=== PATIENT | male | born 1970 | race Caucasian/White ===

== ENCOUNTER 2017-02-17 08:41 | Emergency (ER) | payer OTHER ==
[~2017-02-17] VITALS: Ht 177.8 cm; Wt 117.9 kg
[2017-02-17] MEDS ORDERED: NS IV 1000 ML 1,000 ML IV ONE (08:51)
[2017-02-17] MEDS ORDERED: fentaNYL INJECTION 100 MCG/2 ML AMP IVP ONE ×2 (09:00→09:30)
[2017-02-17] MEDS ORDERED: ONDANSETRON 4 MG/2 ML (SDV) Z0FRAN IVP ONE (09:00)
[2017-02-17 09:02] LABS: BASOPHILS % (AUTO) 0 % (0-10); EOSINOPHILS # (AUTO) 0.5 10^3/uL (0.0-0.3); EOSINOPHILS % (AUTO) 5 % (0-10); LYMPHOCYTES % (AUTO) 30 % (12-44); MEAN CORPUSCULAR HEMOGLOBIN 31 PG (25-34); MEAN CORPUSCULAR HGB CONC 36 G/DL (32-36); MEAN CORPUSCULAR VOLUME 88 FL (80-99); MEAN PLATELET VOLUME 11.6 FL (7.4-10.4); MONOCYTES # (AUTO) 1.3 X 10^3 (0.0-1.0); MONOCYTES % (AUTO) 13 % (0-12); NEUTROPHILS # (AUTO) 5.3 X 10^3 (1.8-7.8); NEUTROPHILS % (AUTO) 52 % (42-75); PLATELET COUNT 230 10^3/uL (130-400); RED CELL DISTRIBUTION WIDTH 12.6 % (10.0-14.5); WHITE BLOOD COUNT 10.1 10^3/uL (4.3-11.0)
[2017-02-17 09:17] LABS: ALANINE AMINOTRANSFERASE 55 U/L (0-55); ANION GAP 10 MMOL/L (5-14); ASPARTATE AMINO TRANSFERASE 28 U/L (5-34); BLOOD UREA NITROGEN 15 MG/DL (7-18); BUN/CREATININE RATIO 15; CALCIUM 9.5 MG/DL (8.5-10.1); CARBON DIOXIDE 24 MMOL/L (21-32); CHLORIDE 105 MMOL/L (98-107); CREATININE SERUM 0.98 MG/DL (0.60-1.30); GFR ESTIMATED > 60; GLUCOSE 161 MG/DL (70-105); LIPASE 38 U/L (8-78); POTASSIUM 4.2 MMOL/L (3.6-5.0); SODIUM 139 MMOL/L (135-145); TOTAL PROTEIN 6.7 GM/DL (6.4-8.2)
[2017-02-17 09:44] LABS: BILIRUBIN,URINE NEGATIVE (NEGATIVE); KETONES,URINE 1+ (NEGATIVE); LEUKOCYTE ESTERASE ,URINE 1+ (NEGATIVE); NITRITE,URINE NEGATIVE (NEGATIVE); PH,URINE 6 (5-9); PROTEIN,URINE 3+ (NEGATIVE); UROBILINOGEN,URINE 1 MG/DL (NORMAL)
[2017-02-17 09:57] LABS: WBC,URINE RARE /HPF
[2017-02-17] MEDS ORDERED: KETOROLAC 30 MG/ML VIAL IVP ONE (10:15)
--- NOTE | 2017-02-17 10:18 | ED Abdominal Pain ---
General Chief Complaint: Abdominal/GI Problems Stated Complaint: WEAK,N/V, LOWER PAIN Nursing Triage Note: PT C/O SUPRAPUBIC ABD PAIN AND L TESTICULAR TENDERNESS SINCE APPROX 0800 THIS AM. HE ALSO C/O N/V AND DIAPHORESIS. Sepsis Screen: No Definite Risk Source of Information: Patient Exam Limitations: No Limitations History of Present Illness Time Seen By Provider: 08:44 Initial Comments This 46-year-old gentleman presents to the emergency room with fairly sudden onset of left lower quadrant and suprapubic pain starting this morning. He has associated nausea and vomiting. He denies any difficulty urinating or passing bowel movement this morning. He took naproxen at home which did not resolve his pain. He reports pain is 8/10. He is diaphoretic at this time. He denies any fever. Denies hematuria or dysuria. He does have a history of renal stones. Primary care provider is Kathe Arango at [facility]. Patient's family also reports he has been having worsening difficulty with upper abdominal pain over the past 1-2 months which she attributes to GERD. He has increased his antiacid therapy from Pepcid to Nexium. He does not complain of upper abdominal pain today. Allergies and Home Medications Allergies Coded Allergies: No Known Drug Allergies (Unverified , 02/17/17) Home Medications Hydrocodone/Acetaminophen 1 Each Tablet, 1-2 EACH PO Q6H PRN for PAIN-MODERATE TO SEVERE, #20 Prescribed by: SABRINA DORAN on 02/17/17 1101 Ondansetron 4 Mg Tab.rapdis, 4 MG PO Q4H PRN for NAUSEA/VOMITING-1ST LINE, #10 Prescribed by: SABRINA DORAN on 02/17/17 1101 Review of Systems Constitutional: see HPI, diaphoresis EENTM: No Symptoms Reported Respiratory: No Symptoms Reported Cardiovascular: No Symptoms Reported Gastrointestinal: See HPI Genitourinary: See HPI Musculoskeletal: no symptoms reported Skin: no symptoms reported Psychiatric/Neurological: No Symptoms Reported Endocrine: No Symptoms Reported Hematologic/Lymphatic: No Symptoms Reported Past Xhhapdw-Ickolv-Mcmivi Hx Patient Social History Alcohol Use: Denies Use Recreational Drug Use: No Smoking Status: Current Everyday Smoker 2nd Hand Smoke Exposure: No Recent Foreign Travel: No Contact w/Someone Who Travel: No Recent Infectious Disease Expo: No Recent Hopitalizations: No Seasonal Allergies Seasonal Allergies: No Surgeries HX Surgeries: Yes Surgeries: Abdominal (left inguinal hernia) Respiratory Hx Respiratory Disorders: No Cardiovascular Hx Cardiac Disorders: Yes Cardiac Disorders: Hypertension Neurological Hx Neurological Disorders: No Reproductive System Hx Reproductive Disorders: No Genitourinary Hx Genitourinary Disorders: Yes Genitourinary Disorders: Kidney Stones Gastrointestinal Hx Gastrointestinal Disorders: Yes Gastrointestinal Disorders: Gastroesophageal Reflux HEENT HX ENT Disorders: No Cancer Hx Cancer: No Psychosocial Hx Psychiatric Problems: No Integumentary HX Skin/Integumentary Disorder: No Physical Exam Vital Signs VS - Last 72 Hours, by Label 02/17/17 02/17/17 08:41 11:30 Temp 97.6 97.6 Pulse 59 59 Resp 14 14 B/P (MAP) 128/96 Pulse Ox 95 95 O2 Delivery Room Air Capillary Refill : Less Than 3 Seconds General Appearance: WD/WN, no apparent distress HEENT: PERRL/EOMI, normal ENT inspection, pharynx normal Neck: normal inspection Respiratory: lungs clear, normal breath sounds, no respiratory distress, no accessory muscle use Cardiovascular: regular rate, rhythm, no edema, no murmur Gastrointestinal: normal bowel sounds, soft, tenderness (suprapubic region, left lower quadrant) Genital/Rectal: tenderness (mild in the left scrotum), other (no evidence of hernia) Extremities: non-tender, normal inspection, no pedal edema Neurologic/Psychiatric: metrology manager II-XII nml as tested, no motor/sensory deficits, alert, normal mood/affect, oriented x 3 Skin: normal color, warm/dry Progress/Results/Core Measures Results/Orders Lab Results Laboratory Tests Test 02/17/17 08:45 02/17/17 09:35 Range/Units White Blood Count 10.1 4.3-11.0 10^3/uL Red Blood Count 5.70 4.35-5.85 10^6/uL Hemoglobin 17.8 H 13.3-17.7 G/DL Hematocrit 50 40-54 % Mean Corpuscular Volume 88 80-99 FL Mean Corpuscular Hemoglobin 31 25-34 PG Mean Corpuscular Hemoglobin Concent 36 32-36 G/DL Red Cell Distribution Width 12.6 10.0-14.5 % Platelet Count 230 130-400 10^3/uL Mean Platelet Volume 11.6 H 7.4-10.4 FL Neutrophils (%) (Auto) 52 42-75 % Lymphocytes (%) (Auto) 30 12-44 % Monocytes (%) (Auto) 13 H 0-12 % Eosinophils (%) (Auto) 5 0-10 % Basophils (%) (Auto) 0 0-10 % Neutrophils # (Auto) 5.3 1.8-7.8 X 10^3 Lymphocytes # (Auto) 3.0 1.0-4.0 X 10^3 Monocytes # (Auto) 1.3 H 0.0-1.0 X 10^3 Eosinophils # (Auto) 0.5 H 0.0-0.3 10^3/uL Basophils # (Auto) 0.0 0.0-0.1 10^3/uL Sodium Level 139 135-145 MMOL/L Potassium Level 4.2 3.6-5.0 MMOL/L Chloride Level 105 98-107 MMOL/L Carbon Dioxide Level 24 21-32 MMOL/L Anion Gap 10 5-14 MMOL/L Blood Urea Nitrogen 15 7-18 MG/DL Creatinine 0.98 0.60-1.30 MG/DL Estimat Glomerular Filtration Rate > 60 BUN/Creatinine Ratio 15 Glucose Level 161 H 70-105 MG/DL Calcium Level 9.5 8.5-10.1 MG/DL Total Bilirubin 1.0 0.1-1.0 MG/DL Aspartate Amino Transf (AST/SGOT) 28 5-34 U/L Alanine Aminotransferase (ALT/SGPT) 55 0-55 U/L Alkaline Phosphatase 80 40-136 U/L Total Protein 6.7 6.4-8.2 GM/DL Albumin 4.0 3.2-4.5 GM/DL Lipase 38 8-78 U/L Urine Color DANIEL H Urine Clarity SLIGHTLY CLOUDY Urine pH 6 5-9 Urine Specific [place] 1.020 1.016-1.022 Urine Protein 3+ H NEGATIVE Urine Glucose (UA) NEGATIVE NEGATIVE Urine Ketones 1+ H NEGATIVE Urine Nitrite NEGATIVE NEGATIVE Urine Bilirubin NEGATIVE NEGATIVE Urine Urobilinogen 1 NORMAL MG/DL Urine Leukocyte Esterase 1+ H NEGATIVE Urine RBC (Auto) 5+ H NEGATIVE Urine RBC TNTC H /HPF Urine WBC RARE /HPF Urine Squamous Epithelial Cells NONE /HPF Urine Crystals NONE /LPF Urine Bacteria NEGATIVE /HPF Urine Casts NONE /LPF Urine Mucus NEGATIVE /LPF Urine Culture Indicated NO My Orders Orders - SABRINA HILTON MD Cbc With Automated Diff (02/17/17 08:51) Comprehensive Metabolic Panel (02/17/17 08:51) Lipase (02/17/17 08:51) Ua Culture If Indicated (02/17/17 08:51) Saline Lock/Iv-Start (02/17/17 08:51) Ns Iv 1000 Ml (Sodium Chloride 0.9%) (02/17/17 08:51) Ondansetron Injection (Zofran Injectio (02/17/17 09:00) Fentanyl Injection (Sublimaze Injection (02/17/17 09:00) Fentanyl Injection (Sublimaze Injection (02/17/17 09:30) Ct Abd/Pelvis Wo(Kidney Stone) (02/17/17 10:01) Ketorolac Injection (Toradol Injection) (02/17/17 10:15) Glycopyrrolate Injection (Robinul Inject (02/17/17 11:00) Iv Push Medical Apparatus Model Maker Ed (02/17/17 ) Medications Given in ED Vital Signs/I&O Vital Sign - Last 12Hours 02/17/17 02/17/17 08:41 11:30 Temp 97.6 97.6 Pulse 59 59 Resp 14 14 B/P (MAP) 128/96 Pulse Ox 95 95 O2 Delivery Room Air Blood Pressure Mean: 107 Progress Note #1: Time: 10:12 Progress Note Patient was able to bowl to finally provide a urine specimen. There was a large amount of hematuria present. CT for stone search was ordered. Toradol given for additional pain relief. Progress Note #2: Progress Note Ureteral stone was found on CT scan. The stone was proximal and Robinul was given an attempt to help him pass the stone. Patient reports that her Reglan helped him in the past and he still has some at home. He plans to use his home supply. We also discussed his need to follow-up regarding his upper abdominal pain. Gallstones incidentally found on the CT scan could be a contributing factor. He was advised to use his Nexium daily. Diagnostic Imaging Diagonstic Imaging: CT Plain Films/CT/US/NM/MRI: abdomen, pelvis Comments CT of the abdomen and pelvis for stone search was viewed by me and report reviewed. See report below: NAME: TRISTAN MARMOLEJO REC#: [id number] PT STATUS: DEP ER : 1970 PHYSICIAN: SABRINA HLITON MD ADMIT DATE: 02/17/17/ER Signed Date of Exam: 02/17/17 CT ABD/PELVIS WO(KIDNEY STONE) PROCEDURE: CT urinary tract, rule out kidney stone. TECHNIQUE: Multiple contiguous axial images were obtained through the abdomen and pelvis without the use of intravenous contrast. INDICATION: Mid to lower abdominal pain COMPARISON: None FINDINGS: Included views of the lung bases are clear. CT abdomen: A 3 mm calculus is identified within the proximal to mid left ureter (image 3, series 4). As a result, there is mild proximal hydroureteronephrosis. No other renal or ureteral calculus seen on either side. There is no hydroureteronephrosis or other evidence of obstruction on the right. No renal mass type lesions are identified on either side. Liver is diffusely hyperdense consistent with underlying hepatic steatosis. There is probable sparing around the gallbladder fossa. Note is also made of multiple gallstones. The adrenal glands, spleen, and pancreas have a normal CT appearance. Small bowel loops are nondistended. There is colonic diverticulosis, but no CT evidence of acute diverticulitis. Normal appendix is identified. There is no loculated fluid collection, free fluid, nor free air within the abdomen. No abnormal mesenteric or retroperitoneal adenopathy is seen. Bony structures show no acute abnormalities. CT pelvis: Urinary bladder is unopacified. No calculi are seen within the urinary bladder. There is no loculated fluid collection, free fluid, nor free air. Bilateral fat-containing inguinal hernias are noted. No abnormal lymph nodes are seen. Bony structures show no acute abnormalities. IMPRESSION: 1. A 3 mm calculus in the mid to proximal left ureter resulting in mild proximal hydroureteronephrosis. 2. Cholelithiasis. 3. Hepatic steatosis. 4. Colonic diverticulosis, but no CT evidence of acute diverticulitis. Dictated by: Dictated on workstation # [id number] Dict: 02/17/17 1039 Trans: 02/17/179 Interpreted by: DANE TRUJILLO Electronically signed by: DANE TRUJILLO 07/06/17 1719 Departure Impression Impression: Primary Impression: Left ureteral stone Additional Impressions: Hydronephrosis Qualified Codes: N13.2 - Hydronephrosis with renal and ureteral calculous obstruction Nausea and vomiting Qualified Codes: R11.2 - Nausea with vomiting, unspecified Cholelithiasis Qualified Codes: K80.20 - Calculus of gallbladder without cholecystitis without obstruction Disposition: 01 HOME, SELF-CARE Condition: Improved Departure-Patient Inst. Decision time for Depature: 10:58 Referrals: [facility] (PCP/Family) Primary Care Physician Patient Instructions: Gallstones, Kidney Stones in Adults Add. Discharge Instructions: Drink plenty of clear liquids. Use your pain medications as prescribed. Strain your urine and bring any stones collected to your follow-up appointment. Follow-up with your primary care provider and/or urologist as soon as possible. Please be advised to have gallstones which may be causing your upper abdominal pain. Referral to a surgeon is recommended for further evaluation. Return to the ER if symptoms worsen. All discharge instructions reviewed with patient and/or family. Voiced understanding. Scripts Hydrocodone/Acetaminophen (Hydrocodon -Acetaminophen 5-325) 1 Each Tablet 1-2 EACH PO Q6H Y for PAIN-MODERATE TO SEVERE, #20 TAB Prov: SABRINA HILTON MD 02/17/17 Ondansetron (Zofran Odt) 4 Mg Tab.rapdis 4 MG PO Q4H Y for NAUSEA/VOMITING-1ST LINE, #10 TAB Prov: SABRINA HILTON MD 02/17/17 SABRINA HILTON MD Feb 17, 2017 10:18
--- NOTE | 2017-02-17 10:51 | Diagnostic Imaging Report ---
PROCEDURE: CT urinary tract, rule out kidney stone. TECHNIQUE: Multiple contiguous axial images were obtained through the abdomen and pelvis without the use of intravenous contrast. INDICATION: Mid to lower abdominal pain COMPARISON: None FINDINGS: Included views of the lung bases are clear. CT abdomen: A 3 mm calculus is identified within the proximal to mid left ureter (image 3, series 4). As a result, there is mild proximal hydroureteronephrosis. No other renal or ureteral calculus seen on either side. There is no hydroureteronephrosis or other evidence of obstruction on the right. No renal mass type lesions are identified on either side. Liver is diffusely hyperdense consistent with underlying hepatic steatosis. There is probable sparing around the gallbladder fossa. Note is also made of multiple gallstones. The adrenal glands, spleen, and pancreas have a normal CT appearance. Small bowel loops are nondistended. There is colonic diverticulosis, but no CT evidence of acute diverticulitis. Normal appendix is identified. There is no loculated fluid collection, free fluid, nor free air within the abdomen. No abnormal mesenteric or retroperitoneal adenopathy is seen. Bony structures show no acute abnormalities. CT pelvis: Urinary bladder is unopacified. No calculi are seen within the urinary bladder. There is no loculated fluid collection, free fluid, nor free air. Bilateral fat-containing inguinal hernias are noted. No abnormal lymph nodes are seen. Bony structures show no acute abnormalities. IMPRESSION: 1. A 3 mm calculus in the mid to proximal left ureter resulting in mild proximal hydroureteronephrosis. 2. Cholelithiasis. 3. Hepatic steatosis. 4. Colonic diverticulosis, but no CT evidence of acute diverticulitis. Dictated by: Dictated on workstation # [id number]
[2017-02-17] MEDS ORDERED: GLYCOPYRROLATE 0.2 MG/ML (ROBINUL) 2 ML VIAL IV ONE (11:00)
[2017-02-17] MEDS ORDERED: HYDR-3812 PO (11:01)
[2017-02-17] MEDS ORDERED: ONDA4TAB8 PO (11:01)
[2017-02-17 11:30] VITALS: BP 128/96
== END 2017-02-17 11:30 | disposition home or self-care (01) ==
LOC: ER 08:44
DX: N13.2 Hydronephrosis with renal and ureteral calculous obstruction (principal); K80.20 Calculus of gallbladder without cholecystitis without obstruction; K21.9 Gastro-esophageal reflux disease without esophagitis; I10 Essential (primary) hypertension; F17.200 Nicotine dependence, unspecified, uncomplicated; Z87.442 Personal history of urinary calculi; Z87.19 Personal history of other diseases of the digestive system
CPT/HCPCS: 36415; 74176; 80053; 81000; 83690; 85025; 96361; 96374; 96375

== ENCOUNTER → 2017-03-01 | Outpatient (CLI) | payer OTHER ==
[~2017-03-01] MED LIST: HYDR-3812 PO; ONDA4TAB8 PO
--- NOTE | 2017-03-01 14:08 | Diagnostic Imaging Report ---
EXAMINATION: Supine view of the abdomen. INDICATION: Left ureteric stone. FINDINGS: The 3 mm stone seen in the proximal left ureter on the CT of 02/17/2017 is not visible on this exam. The 6 mm calcification in the left side of the pelvis is confirmed to be a phlebolith based on the CT. IMPRESSION: There is a 6 mm phlebolith in the left side of the pelvis. No definitive stone is identified. Dictated by: Dictated on workstation # [id number]
== END ==
LOC: RAD 09:53
PROVIDERS: ATTEND Urology
DX: I87.8 Other specified disorders of veins (principal)
CPT/HCPCS: 74000

== ENCOUNTER 2017-07-28 15:15 | Outpatient (CLI) | payer OTHER ==
[~2017-07-28] VITALS: Ht 175.3 cm; Wt 113.4 kg
[~2017-07-28 15:15] MED LIST changes: +HYDR25TA4 PO; +MULT-35 PO; +NF-ESOM40C PO; +OMEG1CAP24 PO
== END 2017-07-28 15:34 ==
LOC: PREOP 15:15
PROVIDERS: ATTEND Surgery
DX: Z01.818 Encounter for other preprocedural examination (principal); K80.20 Calculus of gallbladder without cholecystitis without obstruction

== ENCOUNTER 2017-08-04 09:00 | Day surgery (SDC) | payer OTHER ==
[~2017-08-04] VITALS: Ht 175.3 cm; Wt 113.4 kg
--- NOTE | 2017-08-04 09:24 | Progress Note-Pre Operative ---
Pre-Operative Progress Note H&P Reviewed The H&P was reviewed, patient examined and no changes noted. Date Seen by Provider: Aug 04, 2017 Time Seen by Provider: 09:20 Date H&P Reviewed: Aug 04, 2017 Time H&P Reviewed: :20 Pre-Operative Diagnosis: chronic calculous cholecystitis. VALENTIN MCLEAN MD Aug 04, 2017 9:24 am
[2017-08-04] MEDS ORDERED: LOSA50TA36 PO (09:26)
[2017-08-04] MEDS ORDERED: KRIL1CAP22 PO (09:26)
[2017-08-04] MEDS ORDERED: LACTATED RINGERS 1,000 ML IV PRN ×2 (09:27→09:43)
[2017-08-04 09:30] VITALS: BP 134/87
[2017-08-04] MEDS ORDERED: ceFAZolin INJECTION 1,000 MG in NS (IVPB) 50 ML IV ONE (09:30)
[2017-08-04] MEDS ORDERED: ACETAMINOPHEN 325 MG TABLET/CAPLET (TYLENOL) PO PRN (09:30)
[2017-08-04] MEDS ORDERED: HYDROcodone/APAP 5 MG/325 MG (LORTAB) TAB PO ONE (09:30)
[2017-08-04] MEDS ORDERED: morphine INJ 10 MG/ML 1ML (SYR OR VIAL) IVP PRN (09:30)
[2017-08-04] MEDS ORDERED: ceFAZolin 1 GM/NS 50 ML IVPB IV ONE ×2 (09:30)
[2017-08-04] MEDS ORDERED: ONDANSETRON 4 MG/2 ML (SDV) Z0FRAN IVP PRN ×2 (09:30→13:15)
[2017-08-04] MEDS ORDERED: BUP/EPI 0.5% 1:200,000 (MARCAINE) 10ML VIAL IJ ONE (10:10)
[2017-08-04 10:15] LABS: BASOPHILS % (AUTO) 0 % (0-10); EOSINOPHILS # (AUTO) 0.5 10^3/uL (0.0-0.3); EOSINOPHILS % (AUTO) 5 % (0-10); LYMPHOCYTES # (AUTO) 2.1 X 10^3 (1.0-4.0); LYMPHOCYTES % (AUTO) 23 % (12-44); MEAN CORPUSCULAR HEMOGLOBIN 31 PG (25-34); MEAN CORPUSCULAR HGB CONC 35 G/DL (32-36); MEAN CORPUSCULAR VOLUME 89 FL (80-99); MEAN PLATELET VOLUME 12.3 FL (7.4-10.4); MONOCYTES # (AUTO) 1.3 X 10^3 (0.0-1.0); MONOCYTES % (AUTO) 14 % (0-12); NEUTROPHILS # (AUTO) 5.3 X 10^3 (1.8-7.8); NEUTROPHILS % (AUTO) 57 % (42-75); PLATELET COUNT 178 10^3/uL (130-400); RED BLOOD COUNT 5.61 10^6/uL (4.35-5.85); RED CELL DISTRIBUTION WIDTH 12.7 % (10.0-14.5); WHITE BLOOD COUNT 9.2 10^3/uL (4.3-11.0)
[2017-08-04] MEDS ORDERED: NEOSTIGMINE (BLOXIVERZ ) 1 MG/1ML 10 ML VIAL ONE (10:34)
[2017-08-04] MEDS ORDERED: GLYCOPYRROLATE 0.2 MG/ML (ROBINUL) 2 ML VIAL ONE (10:34)
[2017-08-04] MEDS ORDERED: SEVOFLURANE (ULTANE) 15 ML INHAL SOLN ONE (10:34)
[2017-08-04] MEDS ORDERED: LIDOCAINE PF 2% 5 ML (XYLOCAINE) VIAL ONE (10:34)
[2017-08-04] MEDS ORDERED: ONDANSETRON 4 MG/2 ML (SDV) Z0FRAN ONE (10:34)
[2017-08-04] MEDS ORDERED: DEXAMETHASONE 10 MG/ML (DECADRON) 1 ML VIAL ONE (10:34)
[2017-08-04] MEDS ORDERED: proPOfol 200 MG/20 ML (DIPRIVAN) VIAL IV ONE (10:34)
[2017-08-04] MEDS ORDERED: ROCURONIUM 50 MG/5 ML (ZEMURON) VIAL IV ONE (10:34)
[2017-08-04] MEDS ORDERED: fentaNYL INJECTION 250 MCG/5 ML AMP ONE (10:35)
[2017-08-04] MEDS ORDERED: MIDAZOLAM 2 MG/2 ML (VERSED) VIAL ONE (10:35)
--- OUTSIDE RECORDS SUMMARY | 2017-08-04 10:55 | XMS REPORT ---
Author Author CONSUELO TORRES Organization [facility] Address [address] [place] [address] Care Team Providers Care Agent Contract Clerk Name Role Phone CONSUELO TORRES Unavailable PROBLEMS Type Condition ICD9-CM Code [id number] Code Onset Dates Condition Status SNOMED Code Problem Kidney stones N20.0 Active 31425186 Problem Chronic sinusitis, unspecified location J32.9 Active 24509220 Problem Essential hypertension I10 Active 22844070 Problem Gastroesophageal reflux disease with esophagitis K21.0 Active 461755821 ALLERGIES No Known Allergies SOCIAL HISTORY No smoking Hx information available PLAN OF CARE VITAL SIGNS MEDICATIONS No Known Medications RESULTS Name Result Date Reference Range CBC 2016-08-20 WBC 8.6 3.4-10.8 RBC 5.51 4.14-5.80 Hemoglobin 17.5 12.6-17.7 Hematocrit 50.1 37.5-51.0 MCV 91 79-97 MCH 31.8 26.6-33.0 MCHC 34.9 31.5-35.7 RDW 13.3 12.3-15.4 Platelets 208 150-379 Neutrophils 48 Lymphs 43 Monocytes 4 Eos 4 Basos 1 Immature Cells Neutrophils (Absolute) 4.1 1.4-7.0 Lymphs (Absolute) 3.7 0.7-3.1 Monocytes(Absolute) 0.3 0.1-0.9 Eos (Absolute) 0.3 0.0-0.4 Baso (Absolute) 0.1 0.0-0.2 Immature Granulocytes Immature Grans (Abs) Hematology Comments: Note: LIPID PANEL 2016-08-20 Cholesterol, Total 166 100-199 Triglycerides 142 0-149 HDL Cholesterol 33 >39 VLDL Cholesterol Bry 28 5-40 LDL Cholesterol Calc 105 0-99 CMP 2016-08-20 Glucose, Serum 129 65-99 BUN 16 6-24 Creatinine, Serum 0.91 0.76-1.27 eGFR If NonAfricn Am 101 >59 eGFR If Africn Am 116 >59 BUN/Creatinine Ratio 18 9-20 Sodium, Serum 143 134-144 Potassium, Serum 4.5 3.5-5.2 Chloride, Serum 102 96-106 Carbon Dioxide, Total 28 18-29 Calcium, Serum 9.4 8.7-10.2 Protein, Total, Serum 6.4 6.0-8.5 Albumin, Serum 4.1 3.5-5.5 Globulin, Total 2.3 1.5-4.5 A/G Ratio 1.8 1.1-2.5 Bilirubin, Total 0.6 0.0-1.2 Alkaline Phosphatase, S 78 39-117 AST (SGOT) 26 0-40 ALT (SGPT) 43 0-44 PROCEDURES Procedure Date Ordered Related Diagnosis Body Site COMPLETE CBC W/AUTO DIFF WBC Aug 20, 2016 LIPID PANEL Aug 20, 2016 VENIPUNCT, ROUTINE* Aug 20, 2016 COMPREHEN METABOLIC PANEL Aug 20, 2016 IMMUNIZATIONS No Known Immunizations
--- OUTSIDE RECORDS SUMMARY | 2017-08-04 10:55 | XMS REPORT ---
Author Author CONSUELO TORRES Organization [facility] Address [address] [place] [address] Care Team Providers Care Sales Agent Protective Service Name Role Phone CONSUELO TORRES Unavailable PROBLEMS Type Condition ICD9-CM Code [id number] Code Onset Dates Condition Status SNOMED Code Problem Kidney stones N20.0 Active 36810827 Problem Chronic sinusitis, unspecified location J32.9 Active 73301403 Problem Essential hypertension I10 Active 61030918 Problem Gastroesophageal reflux disease with esophagitis K21.0 Active 274255989 ALLERGIES No Information SOCIAL HISTORY Never Assessed PLAN OF CARE VITAL SIGNS MEDICATIONS No Known Medications RESULTS No Results PROCEDURES No Known procedures IMMUNIZATIONS No Known Immunizations MEDICAL (GENERAL) HISTORY Type Description Date Medical History hypertension Surgical History inguinal hernia repair 1987 [address]ization [address] [facility] Kidney Stones 02/2017
--- OUTSIDE RECORDS SUMMARY | 2017-08-04 10:55 | XMS REPORT ---
Author Author CONSUELO TORRES Organization [facility] Address [address] [place] [address] Care Team Providers Care Moderate Needs Teacher Name Role Phone CONSUELO TORRES Unavailable PROBLEMS Type Condition ICD9-CM Code FUP03-QR Code Onset Dates Condition Status SNOMED Code Problem Kidney stones N20.0 Active 90513352 Problem Essential hypertension I10 Active 46136686 Problem Chronic sinusitis, unspecified location J32.9 Active 40727382 Problem Gastroesophageal reflux disease with esophagitis K21.0 Active 617412440 ALLERGIES Substance Reaction Event Type Date Status N.K.D.A. Unknown Non Drug Allergy Jul, Unknown SOCIAL HISTORY No smoking Hx information available PLAN OF CARE Activity Details Follow Up 2 Weeks Reason:blood work VITAL SIGNS Height 68 in 2016-08-06 Weight 246.0 lbs 2016-08-06 Temperature 97.7 degrees Fahrenheit 2016-08-06 Heart Rate 78 bpm 2016-08-06 Respiratory Rate 20 2016-08-06 BMI 37.40 kg/m2 2016-08-06 Blood pressure systolic 118 mmHg 2016-08-06 Blood pressure diastolic 84 mmHg 2016-08-06 MEDICATIONS Medication Instructions Dosage Frequency Start Date End Date Duration Status Ranitidine HCl 150 MG Orally Once a day 1 capsule at bedtime 24h Active Benazepril-Hydrochlorothiazide 20-25 MG Orally Once a day 1 tablet 24h Active [place]-3 Krill Oil 500 MG Active Tetracycline HCl 500 MG Orally Twice a day 1 capsule 12h Jul, Aug, 10 day(s) Active Sudafed 30 MG Orally every 6 hrs 1 tablet as needed 6h Active Guaifenesin 200 MG Orally every 4 hrs 1 tablet as needed 4h Active One Daily Adults 50+ - Active RESULTS No Results PROCEDURES Procedure Date Ordered Related Diagnosis Body Site Office Visit, Est Pt., Level 3 Aug 06, 2016 IMMUNIZATIONS No Known Immunizations
--- OUTSIDE RECORDS SUMMARY | 2017-08-04 10:55 | XMS REPORT ---
Author Author CONSUELO TORRES Organization [facility] Address [address] [place] [address] Care Team Providers Care Molder Inflated Ball Name Role Phone CONSUELO TRORES Unavailable PROBLEMS Type Condition ICD9-CM Code PLN90-UC Code Onset Dates Condition Status SNOMED Code Problem Kidney stones N20.0 Active 89496023 Problem Chronic sinusitis, unspecified location J32.9 Active 75404482 Problem Essential hypertension I10 Active 16781139 Problem Gastroesophageal reflux disease with esophagitis K21.0 Active 183936355 ALLERGIES No Information SOCIAL HISTORY Never Assessed PLAN OF CARE VITAL SIGNS MEDICATIONS Medication Instructions Dosage Frequency Start Date End Date Duration Status Lisinopril 20 mg Orally Once a day 1 tablet 24h Oct, 30 day(s) Active Hydrochlorothiazide 25 MG Orally Three times a Week 1 tablet in the morning Oct, 30 day(s) Active RESULTS No Results PROCEDURES No Known procedures IMMUNIZATIONS No Known Immunizations MEDICAL (GENERAL) HISTORY Type Description Date Medical History hypertension Surgical History inguinal hernia repair 1987 Hospitalization History [facility] Kid[facility] Stones 02/2017
--- OUTSIDE RECORDS SUMMARY | 2017-08-04 10:55 | XMS REPORT ---
Author Author CONSUELO TORRES Organization [facility] Address [address] [place] [address] Care Team Providers Care Search Strategist Name Role Phone TORRES CONSUELO Unavailable PROBLEMS Type Condition ICD9-CM Code [id number] Code Onset Dates Condition Status SNOMED Code Problem Kidney stones N20.0 Active 10880457 Problem Essential hypertension I10 Active 83492083 Problem Chronic sinusitis, unspecified location J32.9 Active 35076377 Problem Gastroesophageal reflux disease with esophagitis K21.0 Active 741963056 ALLERGIES Substance Reaction Event Type Date Status N.K.D.A. Unknown Non Drug Allergy Jul, Unknown SOCIAL HISTORY No smoking Hx information available PLAN OF CARE VITAL SIGNS MEDICATIONS Medication Instructions Dosage Frequency Start Date End Date Duration Status [place]-3 Krill Oil 500 MG Active Guaifenesin 200 MG Orally every 4 hrs 1 tablet as needed 4h Active Ranitidine HCl 150 MG Orally Once a day 1 capsule at bedtime 24h Active Benazepril-Hydrochlorothiazide 20-25 MG Orally Once a day 1 tablet 24h Active One Daily Adults 50+ - Active Sudafed 30 MG Orally every 6 hrs 1 tablet as needed 6h Active RESULTS No Results PROCEDURES No Known procedures IMMUNIZATIONS No Known Immunizations
--- OUTSIDE RECORDS SUMMARY | 2017-08-04 10:56 | XMS REPORT ---
Author Author CONSUELO TORRES Organization [facility] Address [address] [place] [address] Care Team Providers Care Turret Lathe Machinist Name Role Phone CONSUELO TORRES Unavailable PROBLEMS Type Condition ICD9-CM Code ALA02-TW Code Onset Dates Condition Status SNOMED Code Problem Kidney stones N20.0 Active 26860361 Problem Chronic sinusitis, unspecified location J32.9 Active 62225313 Problem Essential hypertension I10 Active 18730175 Problem Gastroesophageal reflux disease with esophagitis K21.0 Active 125507554 ALLERGIES No Known Allergies SOCIAL HISTORY No smoking Hx information available PLAN OF CARE VITAL SIGNS MEDICATIONS No Known Medications RESULTS Name Result Date Reference Range A1C (IN HOUSE) 2016-08-27 A1C IN HOUSE 5.9 4.3 - 5.6 % Previous A1c n/a Lot [id number] Exp date PROCEDURES Procedure Date Ordered Related Diagnosis Body Site GLYCATED HEMOGLOBIN TEST Aug 27, 2016 IMMUNIZATIONS No Known Immunizations
[2017-08-04] MEDS ORDERED: PHENYLEPHRINE 100 MCG/ML 10 ML (ANESTHESIA) SYR ONE (11:45)
[2017-08-04] MEDS ORDERED: fentaNYL INJECTION 100 MCG/2 ML AMP ONE (12:44)
--- NOTE | 2017-08-04 12:53 | Progress Note-Post Operative ---
Post-Operative Progess Note Surgeon (s)/Physical Science Professor (s) Surgeon VALENTIN MCLEAN MD Physical Science Professor: byron fernandez APRN Pre-Operative Diagnosis chronic calculous cholecystitis. Post-Operative Diagnosis same Procedure & Operative Findings Date of Procedure 08/04/17 Procedure Performed/Findings laparoscopic cholecystectomy. Anesthesia Type GET Estimated Blood Loss Estimated blood loss (mL): minimal Specimens/Packing Specimens Removed gallbladder VALENTIN MCLEAN MD Aug 04, 2017 12:53 pm
[2017-08-04] MEDS ORDERED: HYDR-3816 PO (12:58)
--- NOTE | 2017-08-04 13:00 | Discharge Inst-Surgical ---
D/C Lap Instructions-VINAY New, Converted, or Re-Newed RX: RX on Chart Follow Up Appt in 2 weeks Activity as tolerated No driving for 24 hours No [address] while on pain medications Incentive Spirometry use every 2 hours while awake Regular Diet Symptoms to Report: Fever over 101 degree F, Nausea/Vomiting Infection Signs and Symptoms to report: Increased redness, Foul odor of wound, Increased drainage Bathing instructions: May shower Operative Area Clean/Dry; Keep incision clean/dry If any problems/questions: Contact your physician or go to Emergency Room VALENTIN MCLEAN MD Aug 04, 2017 1:00 pm
[2017-08-04] MEDS ORDERED: KETOROLAC 30 MG/ML VIAL ONE (13:04)
[2017-08-04] MEDS ORDERED: KETOROLAC 30 MG/ML VIAL IVP ONE (13:15)
[2017-08-04] MEDS ORDERED: MEPERIDINE (DEMEROL) INJ 50 MG/ML IVP PRN (13:15)
[2017-08-04] MEDS: HYDROmorphone (DILAUDID) 2 MG/ML VIAL IVP PRN ×2 (13:19→13:29)
[2017-08-04 14:10] VITALS: BP 116/79
[2017-08-04 14:40] VITALS: BP 119/79
[2017-08-04 15:10] VITALS: BP 143/99
[2017-08-04 15:25] VITALS: BP 143/99
--- NOTE | 2017-08-04 21:19 | OPERATIVE REPORT ---
DATE OF SERVICE: 08/04/2017 ATTENDING PRIMARY PHYSICAL THERAPY ATTENDANT: Kathe Arango APRN PREOPERATIVE DIAGNOSIS: Symptomatic chronic calculous cholecystitis. POSTOPERATIVE DIAGNOSIS: Symptomatic chronic calculous cholecystitis, Umbilical hernia. PROCEDURE: Laparoscopic cholecystectomy, open primary umbilical hernia repair. SURGEON: Dr. Mclean. PLANT PATHOLOGIST: Gustabo Ralph APRN ANESTHESIA: General endotracheal. ESTIMATED BLOOD LOSS: Minimal. FINDINGS: Chronic gallbladder inflammation with two large stones, umbilical hernia approximately 1.5 cm in size, which was repaired primarily. DISPOSITION: The patient tolerated the procedure well. INDICATIONS: The patient is a 46-year-old male with symptomatic gallstones. He presented to [facility] Emergency Department on 02/17/2017 for lower quadrant abdominal pain. A CT scan was performed and a 3 mm kidney stone identified in the mid left ureter. Incidental finding was significant cholelithiasis. Upon further questioning, he reported approximately past one to two years he has had episodes of right upper abdominal quadrant pain with associated back pain as well as nausea; however, no vomiting. This was usually after meals. He reports a history of reflux and occasionally has issues; however, this is under control with Nexium daily. He has a known history of inguinal hernia's which are intermittently symptomatic. DESCRIPTION OF PROCEDURE: The patient was brought to the operating room, laid supine on the table. After adequate IV pain and sedative medications and general endotracheal intubation, the abdomen was prepped and draped in a standard surgical fashion. A 0.5% Marcaine with epinephrine was then used to anesthetize the overlying skin in the left upper abdominal quadrant and a transverse skin incision was made using a 15 blade. An 0 silk suture was applied to the medial aspect of the incision for retraction and a Veress needle inserted with a low opening pressure of 0 mmHg and the abdomen was then insufflated to 15 mmHg pressure. The Veress needle was removed and a 5 mm Xcel trocar was placed followed by a 5 mm 45-degree angle laparoscope visualizing the peritoneal cavity. A 4-quadrant abdominal exploration was performed. A small umbilical hernia was identified approximately 1.5 cm in size. There was gallbladder wall dilatation as well as chronic mild inflammatory changes. Under direct visualization, we then proceeded to place the 10 mm port through the umbilical hernia defect after the skin and the hernia lining were anesthetized using 0.5% Marcaine with epinephrine and a crescent shaped supraumbilical skin incision was made using a 15 blade. In a similar manner, a right upper abdominal quadrant 5 mm port was placed. The patient was then placed in a reverse Trendelenburg position as well as plane right side up, left side down. The fundus of the gallbladder was then retracted anteriorly and superiorly. The omental adhesions were then taken down bluntly. The hepatoduodenal ligament was then opened using a cautery on hook instrument as well as blunt dissection. The critical view of safety was identified including the triangle of Calot as well as the cystic duct and artery as the only two structures going into the gallbladder as well as the cystic plate behind the proximal gallbladder. A timeout was then taken and the cystic duct and artery were then clipped proximally, distally and cut with EndoShears. The gallbladder was then dissected off the liver bed using electrocautery and the hook instrument with visualization of good hemostasis as well as no leaking ducts of Luschka. The gallbladder was removed through the 10 mm port site using an EndoCatch bag. We then decided to repair the umbilical hernia primarily due to the small size of the defect. The fascia was identified and tented anteriorly using a Mireille clamp. We then proceeded with approximation transversely using a running 0 Prolene suture on a UR needle. The abdomen was desufflated and remaining ports were removed. All skin incisions were closed using 4-0 Monocryl running subcuticular sutures. Wounds were then cleaned and covered with Dermabond. The patient tolerated the procedure well. We will start IV and oral pain medication as well as a clear liquid diet. Once he is tolerating clears and has good pain control with oral pain medications and ambulating well, we will discharge him home. Job ID: [id number] DocumentID: [id number] Dictated Date: 08/04/2017 13:08:26 Chronic Disease Epidemiologist Date: 08/04/2017 20:59:36 Dictated By: VALENTIN MCLEAN MD [facility]
== END 2017-08-04 15:25 | disposition home or self-care (01) ==
LOC: SDC 09:00
PROVIDERS: ATTEND Surgery
DX: K80.10 Calculus of gallbladder with chronic cholecystitis without obstruction (principal); K42.9 Umbilical hernia without obstruction or gangrene; I10 Essential (primary) hypertension; K21.9 Gastro-esophageal reflux disease without esophagitis; F17.210 Nicotine dependence, cigarettes, uncomplicated; Z79.899 Other long term (current) drug therapy
CPT/HCPCS: 36415; 85025; 87081; 94664